=== PATIENT | male | born 1930 | race Caucasian/White ===

== ENCOUNTER 2017-03-17 15:44 | Inpatient (IN) | payer MEDICARE, BC ==
[2017-03-26] MEDS ORDERED: Ciprofloxacin 500 MG Tab PO PRN (12:07)
[2017-03-26] MEDS ORDERED: Ondansetron 4 MG/2 ML SDV IVPUSH PRN (12:07)
[2017-03-26] MEDS ORDERED: Diltiazem 100 MG in Sodium Chloride 0.9% 100 ML IV SCH (12:07)
[2017-03-26] MEDS ORDERED: Lactulose Soln 10 GM/15 ML 30 ML UD Cup PO PRN (12:07)
[2017-03-26] MEDS ORDERED: Nitroglycerin 0.4 MG Tab.SL SL PRN (12:07)
[2017-03-26] MEDS ORDERED: Sodium Chloride 0.9% 10 ML Syringe FLUSH PRN (12:07)
[2017-03-26] MEDS ORDERED: Acetaminophen 325 MG Tab PO PRN (12:07)
[2017-03-26] MEDS ORDERED: Polyethylene Glycol 3350 Powder 17 GM Packet PO PRN (12:07)
--- NOTE | 2017-03-26 12:21 | PCM.HP ---
H&P History of Present Illness - General Date of Service: 03/26/17 Admit Problem/Dx: Admission Diagnosis/Problem Admission Diagnosis/Problem Hip pain Source of Information: Patient History Limitations: Reports: No Limitations - History of Present Illness Initial Comments - Free Text/Narative: 86-year-old male with past medical history of hypertension, aortic stenosis, vasovagal syncope, recent left hip replacement coronary artery disease status post PCI on and March presented on 03/24/17 to the hospital from [facility] for swing bed for his left hip replacement and post coronary PCI recovery. Upon arrival to the hospital and while nurse taking his vitals patient felt central chest discomfort rated at 5/10 on pain scale associated with sweats and dizziness. He said it was hard for him to take a deep breath at that time. This lasted about 20 minutes and symptoms resolved spontaneously after sitting in chair. EKG was done and showed atrial fibrillation with heart rate of [address] changes. Troponin is 0.47. Patient denies headache, change in vision, fever, chills, cough, abdominal pain, diarrhea, lower extremities edema, unilateral weakness/numbness/tingling, bleeding, black stool, in stool, any other symptoms or concerns. On 03/07/2017 patient had syncopal episode and left hip fracture. At that time he went to [facility] in [place] and he was found to be anemic so blood transfusion and IV fluids were given and fracture was repaired by gamma nailing. During that hospitalization and was working with physical therapy patient developed atrial fibrillation was rapid ventricular response and had an episode of syncope. He was converted to normal sinus rhythm gradually at that time he was started on metoprolol and amiodarone. His troponin went up to 0.49 also it was reported that patient had 2 more episodes of syncope while working with physical therapy. His equal cardiogram showed ejection fraction of 65% and aortic stenosis with valve area of 1.86. Patient then was transferred to [place] for cardiac evaluation for possible valve replacement. Patient was found to have urinary tract infection with Staphylococcus epididymis and was started on doxycycline and later on ciprofloxacin patient was started on Midodrone for his syncope. Plavix and atorvastatin was started. Today patient feels better. He denies fever, chills chest discomfort, shortness breath, palpitation, dizziness, fainting, nausea, vomiting, abdominal pain, diarrhea, dysuria, blood in stool, black stool, blood in the urine, and any other symptoms or concerns. - Related Data Allergies/Adverse Reactions: Allergies Allergy/AdvReac Type Severity Reaction Status Date / Time No Known Allergies Allergy Verified 03/26/17 11:11 Home Medications: Home Meds Tamsulosin [Flomax] 0.4 mg PO DAILY 04/25/14 [History] Latanoprost [Xalatan 0.005% Ophth Soln] 1 drop EYEBOTH BEDTIME 04/26/14 [History ] Aspirin [Halfprin] 81 mg PO DAILY 03/24/17 [History] Ferrous Sulfate 325 mg PO DAILY 03/24/17 [History] LORazepam 0.5 mg PO Q8H PRN 03/24/17 [History] Lactulose 15 ml PO TID PRN 03/24/17 [History] Metoprolol Tartrate 12.5 mg PO BID 03/24/17 [History] Sennosides/Docusate Sodium [Sennosides-Docusate Sodium] 2 tab PO BID 03/24/17 [ History] Acetaminophen [Tylenol] 650 mg PO Q4H PRN tablet 03/26/17 [Rx] Ciprofloxacin [IJD: Ciprofloxacin HCl] 500 mg PO BID PRN tablet 03/26/17 [Rx] Past Medical History HEENT History: Reports: Cataract, Glaucoma, Hard of Hearing Cardiovascular History: Reports: Heart Murmur, Stents Genitourinary History: Reports: Prostate Disorder, Other (See Below) Other Genitourinary History: Pt had been doing self catheterization at home at HS and prn. Pt has hx of radiation pellets for prostate CA and has had difficulty voiding since then Musculoskeletal History: Reports: Fracture, Other (See Below) Other Musculoskeletal History: hip fracture repair 03-08-2017 Hematologic History: Reports: Blood Transfusion(s), Iron Deficiency, Other (See Below) Other Hematologic History: 2 blood transfusions after his recent surgery Oncologic (Cancer) History: Reports: Prostate - Infectious Disease History Infectious Disease History: Reports: Chicken Pox, Measles - Past Surgical History HEENT Surgical History: Reports: Cataract Surgery Cardiovascular Surgical History: Reports: Coronary Artery Stent GI Surgical History: Reports: Colonoscopy Male Surgical History: Reports: None Oncologic Surgical History: Reports: None Social & Family History - Family History Family Medical History: Noncontributory - Tobacco Use Smoking Status *Q: Former Smoker Years of Tobacco use: 15 Packs/Tins Daily: 2 Used Tobacco, but Quit: Yes Month Tobacco Last Used: July Second Hand Smoke Exposure: No - Caffeine Use Caffeine Use: Reports: Coffee - Recreational Drug Use Recreational Drug Use: No H&P Review of Systems - Review of Systems: Review Of Systems: ROS reveals no pertinent complaints other than HPI. Exam - Exam Exam: See Below - Exam General: Alert, Oriented, Cooperative. No: Mild Distress, Moderate Distress, Severe Distress, Sedated, Lethargic, Obtunded HEENT: Conjunctiva Clear, EACs Clear, EOMI, Hearing Intact, Mucosa Moist & [place] , Nares Patent, Normal Nasal Septum, Posterior Pharynx Clear, Pupils Equal, Pupils Reactive Neck: Supple, Trachea Midline, +2 Carotid Pulse wo Bruit Lungs: Clear to Auscultation, Normal Respiratory Effort. No: Crackles, Rales, Rhonchi, Rub, Stridor, Wheezing Cardiovascular: Regular Rate, Regular Rhythm, Normal S1, Normal S2 GI/Abdominal Exam: Normal Bowel Sounds, Soft, Non-Tender, No Organomegaly, No Distention, No Abnormal Bruit (Male) Exam: Deferred Rectal (Males) Exam: Deferred Back Exam: Normal Inspection, Full Range of Motion. No: CVA Tenderness (L), CVA Tenderness (R) Extremities: Normal Inspection, Normal Range of Motion, Non-Tender, No Pedal Edema, Normal Capillary Refill, Slow Capillary Refill Skin: Warm, Intact Neurological: Cranial Nerves Intact Neuro Extensive - Mental Status: Alert, Oriented x3, Normal Mood/Affect Psychiatric: Alert, Normal Affect, Normal Mood. No: Labile Mood, Anxious, Depressed, Agitated, Suicidal Ideation, Homicidal Ideation, Hallucinations, Withdrawal Symptoms *Q Meaningful Use (ADM) - VTE *Q VTE Criteria *Q: - Stroke *Q Stroke Criteria *Q: - AMI *Q AMI Criteria *Q: Problem List Initiated/Reviewed/Updated: Yes Orders Last 24hrs: Active Orders 24 hr Category Date Time Status Patient Status [ADT] Routine ADT 03/26/17 11:57 Active Antiembolic Devices [RC] PER UNIT ROUTINE Care 03/26/17 12:07 Inactive Antiembolic Devices [RC] PER UNIT ROUTINE Care 03/26/17 12:07 Ordered Bedrest Bathroom Privileges [RC] ASDIRECTED Care 03/26/17 12:07 Ordered Communication Order [RC] ROUTINE Care 03/26/17 12:07 Ordered Communication Order [RC] ROUTINE Care 03/26/17 12:07 Ordered Height and Weight [RC] WEEKLY Care 03/26/17 11:58 Active Intake and Output [RC] ASDIRECTED Care 03/26/17 11:56 Active Notify Provider Vital Signs [RC] ASDIRECTED Care 03/26/17 11:58 Active Oxygen Therapy [RC] PRN Care 03/26/17 11:57 Active Oxygen Therapy [RC] PRN Care 03/26/17 12:07 Inactive Peripheral IV Care [RC] . DIRECTED Care 03/26/17 12:07 Inactive Peripheral IV Care [RC] . DIRECTED Care 03/26/17 12:07 Ordered Ready for Discharge [RC] PER UNIT ROUTINE Care 03/26/17 12:07 Ordered Up ad Valerie [RC] ASDIRECTED Care 03/26/17 11:56 Active VTE/DVT Education [RC] PER UNIT ROUTINE Care 03/26/17 11:57 Active VTE/DVT Education [RC] PER UNIT ROUTINE Care 03/26/17 12:07 Inactive Vital Signs [RC] PER UNIT ROUTINE Care 03/26/17 11:57 Active OT Evaluation and Treatment [CONS] Routine Cons 03/26/17 12:07 Ordered PT Evaluation and Treatment [CONS] Routine Cons 03/26/17 12:07 Ordered Heart Healthy Diet [DIET] Diet 03/26/17 Lunch Ordered CULTURE URINE [RM] Routine Lab 03/26/17 12:07 Ordered Acetaminophen [Tylenol] Med 03/26/17 12:07 Ordered 650 mg PO Q4H PRN Amiodarone [Cordarone] Med 03/27/17 09:00 Ordered 200 mg PO DAILY Aspirin [Halfprin] Med 03/27/17 08:00 Ordered 81 mg PO DAILY@0800 Ciprofloxacin [Ciprofloxacin HCl] Med 03/26/17 12:07 Ordered 500 mg PO BID PRN Clopidogrel [Plavix] Med 03/27/17 09:00 Ordered 75 mg PO DAILY Diltiazem [Cardizem] 100 mg Med 03/26/17 12:07 Ordered Sodium Chloride 0.9% [Normal Saline] 100 ml IV TITRATE Docusate Sodium/Sennosides [Senna Plus] Med 03/26/17 21:00 Ordered 2 tab PO BID Ferrous Sulfate Med 03/27/17 09:00 Ordered 325 mg PO DAILY LORazepam [Ativan] Med 03/26/17 12:07 Ordered 0.5 mg PO Q8H PRN Lactulose [Cephulac] Med 03/26/17 12:07 Ordered 10 gm PO TID PRN Latanoprost [Xalatan 0.005% Ophth Soln] Med 03/26/17 21:00 Ordered 0 ml EYEBOTH BEDTIME Metoprolol Tartrate [Lopressor] Med 03/26/17 21:00 Ordered 12.5 mg PO BID Midodrine Med 03/26/17 18:00 Ordered 2.5 mg PO BIDMEALS Nitroglycerin [Nitrostat] Med 03/26/17 12:07 Ordered 0.4 mg SL Q5M PRN Ondansetron [Zofran] Med 03/26/17 12:07 Ordered 4 mg IVPUSH Q6H PRN Polyethylene Glycol 3350 [MiraLAX] Med 03/26/17 12:07 Ordered 17 gm PO DAILY PRN Sodium Chloride 0.9% [Saline Flush] Med 03/26/17 12:07 Ordered 10 ml FLUSH ASDIRECTED PRN Sodium Chloride 0.9% [Saline Flush] Med 03/26/17 12:07 Ordered 10 ml FLUSH ASDIRECTED PRN Tamsulosin [Flomax] Med 03/27/17 09:00 Ordered 0.4 mg PO DAILY atorvaSTATin [Lipitor] Med 03/26/17 21:00 Ordered 40 mg PO BEDTIME Peripheral IV Insertion Adult [OM.PC] Routine Oth 03/26/17 12:07 Ordered LIMA Hose [Antiembolic Hose] [OM.PC] Routine Oth 03/26/17 12:07 Ordered Resuscitation Status Routine Resus Stat 03/26/17 11:56 Ordered Medication Orders Acetaminophen (Tylenol) 650 mg PO Q4H PRN PRN Reason: Pain (Mild 1-3)/fever Amiodarone HCl (Cordarone) 200 mg PO DAILY BEAN Aspirin (Halfprin) 81 mg PO DAILY@0800 [facility] Atorvastatin Calcium (Lipitor) 40 mg PO BEDTIME BEAN Ciprofloxacin (Ciprofloxacin Hcl) 500 mg PO BID PRN PRN Reason: HOME ROUTINE Stop: 04/03/17 21:01 Clopidogrel Bisulfate (Plavix) 75 mg PO DAILY BEAN Ferrous Sulfate (Ferrous Sulfate) 325 mg PO DAILY BEAN Diltiazem HCl 100 mg/ Sodium (Chloride) 100 mls @ 5 mls/hr IV TITRATE BEAN; 5 MG /HR PRN Reason: Protocol Lactulose (Cephulac) 10 gm PO TID PRN PRN Reason: CONSTIPATION Latanoprost (Xalatan 0.005% Ophth Soln) 0 ml EYEBOTH BEDTIME BEAN Lorazepam (Ativan) 0.5 mg PO Q8H PRN PRN Reason: Anxiety Metoprolol Tartrate (Lopressor) 12.5 mg PO BID BEAN Midodrine (Midodrine) 2.5 mg PO BIDMEALS BEAN Nitroglycerin (Nitrostat) 0.4 mg SL Q5M PRN PRN Reason: Chest Pain Ondansetron HCl (Zofran) 4 mg IVPUSH Q6H PRN PRN Reason: Nausea/Vomiting Polyethylene Glycol (Miralax) 17 gm PO DAILY PRN PRN Reason: Constipation Senna/Docusate Sodium (Senna Plus) 2 tab PO BID BEAN Sodium Chloride (Saline Flush) 10 ml FLUSH ASDIRECTED PRN PRN Reason: Keep Vein Open Sodium Chloride (Saline Flush) 10 ml FLUSH ASDIRECTED PRN PRN Reason: Keep Vein Open Tamsulosin HCl (Flomax) 0.4 mg PO DAILY [facility] Assessment/Plan Comment:: 86-year-old male with past medical history of essential hypertension, aortic stenosis, syncope who sustained left ear fracture on 03/07/2017 after syncopal episode and underwent gamma nailing procedure. While doing postsurgical physical therapy patient developed atrial fibrillation that was resolved spontaneously. Patient underwent coronary angiogram with PCI last week. Patient was coming to our hospital to do postsurgical physical therapy and occupational therapy after his surgery and upon arrival he developed atrial fibrillation with RVR. Troponin is 0.47. Patient received Cardizem 10 mg IV once attention to his oral metoprolol and spontaneously converted to sinus rhythm after few hours. For the last 2 days patient has been free of symptoms and he is being admitted to swing bed for further physical and the patient's therapy for his left hip surgery recovered. #Status post left hip replacement PT and OT consults Pain is fairly controlled #Paroxysmal atrial fibrillation -EKG on 03/25/17 showed sinus rhythm today Converted to sinus rhythm after few hours after receiving 1 L of normal saline as a bolus, Cardizem 10 mg IV push, metoprolol tartrate 12.5 mg by mouth. -Continue Plavix and aspirin -Troponin is stable -Continue amiodarone and metoprolol #Anemia, chronic He denies blood in the stool or black stool -Hemoglobin dropped to 7.4. Possibly from dilution. Today went up to 8.0. -Continue ferrous sulfate #Coronary artery disease with recent PCI Continue Placontinue aspirin and Plavix #Possible UTI Ciprofloxacin 500 for 10 days Awaiting urine culture #Essential hypertension Metoprolol #Chronic kidney disease Avoid nephrotoxic medications heart healthy diet DVT prophylaxis: Pharmaceutical DVT prophylaxis is contraindicated since he is on Lovenox CODE STATUS: Full
[2017-03-26] MEDS: Midodrine 2.5 MG Tab PO SCH (17:13)
[2017-03-26] MEDS: Ciprofloxacin 500 MG Tab PO SCH (20:55)
[2017-03-26] MEDS: Metoprolol Tartrate 25 MG Tab PO SCH (20:56)
[2017-03-26] MEDS: atorvaSTATin 20 MG Tab PO SCH (20:56)
[2017-03-26] MEDS: Latanoprost 0.005% Ophth Soln 2.5 ML Bottle EYEBOTH SCH (21:00)
[2017-03-26] MEDS: Sodium Chloride 0.9% 10 ML Syringe FLUSH PRN ×2 (21:02→21:03)
[2017-03-26] MEDS: LORazepam 0.5 MG Tab PO PRN (22:13)
[2017-03-27] MEDS: Aspirin 81 MG Tab.EC PO SCH (08:04)
[2017-03-27] MEDS: Ferrous Sulfate 325 MG Tab PO SCH (08:04)
[2017-03-27] MEDS: Amiodarone 200 MG Tab PO SCH (08:04)
[2017-03-27] MEDS: Clopidogrel 75 MG Tab PO SCH (08:04)
[2017-03-27] MEDS: Ciprofloxacin 500 MG Tab PO SCH ×2 (08:04→20:42)
[2017-03-27] MEDS: Midodrine 2.5 MG Tab PO SCH ×2 (08:04→17:05)
[2017-03-27] MEDS: Tamsulosin 0.4 MG Cap.ER PO SCH (08:05)
[2017-03-27] MEDS: Metoprolol Tartrate 25 MG Tab PO SCH ×2 (08:05→20:43)
[2017-03-27] MEDS: atorvaSTATin 20 MG Tab PO SCH (20:42)
[2017-03-27] MEDS ORDERED: Ondansetron 4 MG Tab.DIS PO PRN ×2 (20:46→21:01)
[2017-03-27] MEDS: Latanoprost 0.005% Ophth Soln 2.5 ML Bottle EYEBOTH SCH (21:05)
[2017-03-27] MEDS: LORazepam 0.5 MG Tab PO PRN (21:15)
[2017-03-28] MEDS: Aspirin 81 MG Tab.EC PO SCH (07:41)
[2017-03-28] MEDS: Midodrine 2.5 MG Tab PO SCH ×2 (07:41→17:00)
[2017-03-28] MEDS: Clopidogrel 75 MG Tab PO SCH ×2 (07:41→08:37)
[2017-03-28] MEDS: Tamsulosin 0.4 MG Cap.ER PO SCH ×2 (07:42→08:37)
[2017-03-28] MEDS: Ciprofloxacin 500 MG Tab PO SCH (07:42)
[2017-03-28] MEDS: Ferrous Sulfate 325 MG Tab PO SCH (07:42)
[2017-03-28] MEDS: Metoprolol Tartrate 25 MG Tab PO SCH ×3 (07:50→21:36)
[2017-03-28] MEDS: Amiodarone 200 MG Tab PO SCH ×2 (07:50→08:37)
--- NOTE | 2017-03-28 08:23 | PCM.SN ---
- Free Text/Narrative Note: urine cx grew klebsiella Pneumoniae, resistant to cipro but sensitive to levaquin. will change cipro to levaquin
[2017-03-28] MEDS ORDERED: Levofloxacin 500 MG Tab PO SCH (10:00)
--- NOTE | 2017-03-28 13:55 | CR ---
Clinical history: 86-year-old male status post orthopedic gamma nailing surgery proximal left hip fra cture (few weeks ago) Interpretation: Intramedullary celio extends length of left femur and bridges/transfixes the intertroch anteric fracture with near anatomic apposition and alignment (anchored with nail in the femoral neck and head). No periosteal new bone or healing callus appreciated this time. No other long bone fracture or dislocation left hip or knee joint.
[2017-03-28] MEDS: atorvaSTATin 20 MG Tab PO SCH (21:36)
[2017-03-28] MEDS: LORazepam 0.5 MG Tab PO PRN (21:41)
[2017-03-28] MEDS: Latanoprost 0.005% Ophth Soln 2.5 ML Bottle EYEBOTH SCH (21:46)
[2017-03-29] MEDS: Levofloxacin 250 MG Tab PO SCH (08:01)
[2017-03-29] MEDS: Aspirin 81 MG Tab.EC PO SCH (08:01)
[2017-03-29] MEDS: Metoprolol Tartrate 25 MG Tab PO SCH ×2 (08:01→21:35)
[2017-03-29] MEDS: Amiodarone 200 MG Tab PO SCH (08:01)
[2017-03-29] MEDS: Clopidogrel 75 MG Tab PO SCH (08:01)
[2017-03-29] MEDS: Midodrine 2.5 MG Tab PO SCH ×2 (08:01→16:59)
[2017-03-29] MEDS: Ferrous Sulfate 325 MG Tab PO SCH (08:01)
[2017-03-29] MEDS: Tamsulosin 0.4 MG Cap.ER PO SCH (08:01)
[2017-03-29] MEDS: Latanoprost 0.005% Ophth Soln 2.5 ML Bottle EYEBOTH SCH (20:49)
[2017-03-29] MEDS: atorvaSTATin 20 MG Tab PO SCH (20:50)
[2017-03-29] MEDS: LORazepam 0.5 MG Tab PO PRN (20:58)
[2017-03-30] MEDS: Ferrous Sulfate 325 MG Tab PO SCH (07:58)
[2017-03-30] MEDS: Midodrine 2.5 MG Tab PO SCH ×2 (07:58→16:59)
[2017-03-30] MEDS: Aspirin 81 MG Tab.EC PO SCH (07:58)
[2017-03-30] MEDS: Amiodarone 200 MG Tab PO SCH (07:59)
[2017-03-30] MEDS: Tamsulosin 0.4 MG Cap.ER PO SCH (07:59)
[2017-03-30] MEDS: Clopidogrel 75 MG Tab PO SCH (07:59)
[2017-03-30] MEDS: Metoprolol Tartrate 25 MG Tab PO SCH ×2 (07:59→20:51)
[2017-03-30] MEDS: Levofloxacin 250 MG Tab PO SCH (07:59)
[2017-03-30] MEDS: atorvaSTATin 20 MG Tab PO SCH (20:51)
[2017-03-30] MEDS: Latanoprost 0.005% Ophth Soln 2.5 ML Bottle EYEBOTH SCH (20:55)
[2017-03-30] MEDS: LORazepam 0.5 MG Tab PO PRN (21:34)
[2017-03-31] MEDS: Aspirin 81 MG Tab.EC PO SCH (07:58)
[2017-03-31] MEDS: Midodrine 2.5 MG Tab PO SCH ×3 (07:58→17:46)
[2017-03-31] MEDS: Ferrous Sulfate 325 MG Tab PO SCH (07:58)
[2017-03-31] MEDS: Levofloxacin 250 MG Tab PO SCH (08:35)
[2017-03-31] MEDS: Clopidogrel 75 MG Tab PO SCH (08:35)
[2017-03-31] MEDS: Metoprolol Tartrate 25 MG Tab PO SCH ×2 (08:35→21:12)
[2017-03-31] MEDS: Tamsulosin 0.4 MG Cap.ER PO SCH (08:35)
[2017-03-31] MEDS: Amiodarone 200 MG Tab PO SCH (08:36)
[2017-03-31] MEDS: atorvaSTATin 20 MG Tab PO SCH (21:11)
[2017-03-31] MEDS: Latanoprost 0.005% Ophth Soln 2.5 ML Bottle EYEBOTH SCH (21:15)
[2017-03-31] MEDS: LORazepam 0.5 MG Tab PO PRN (22:04)
[2017-04-01] MEDS: Midodrine 2.5 MG Tab PO SCH ×2 (08:35→17:13)
[2017-04-01] MEDS: Aspirin 81 MG Tab.EC PO SCH (08:35)
[2017-04-01] MEDS: Ferrous Sulfate 325 MG Tab PO SCH (08:35)
[2017-04-01] MEDS: Metoprolol Tartrate 25 MG Tab PO SCH ×2 (08:36→20:50)
[2017-04-01] MEDS: Levofloxacin 250 MG Tab PO SCH (08:37)
[2017-04-01] MEDS: Tamsulosin 0.4 MG Cap.ER PO SCH (08:37)
[2017-04-01] MEDS: Clopidogrel 75 MG Tab PO SCH (08:38)
[2017-04-01] MEDS: Amiodarone 200 MG Tab PO SCH (11:53)
[2017-04-01] MEDS: atorvaSTATin 20 MG Tab PO SCH (20:50)
[2017-04-01] MEDS: Latanoprost 0.005% Ophth Soln 2.5 ML Bottle EYEBOTH SCH (20:55)
[2017-04-01] MEDS: LORazepam 0.5 MG Tab PO PRN (21:48)
[2017-04-02] MEDS: Midodrine 2.5 MG Tab PO SCH ×2 (07:59→17:02)
[2017-04-02] MEDS: Amiodarone 200 MG Tab PO SCH (08:31)
[2017-04-02] MEDS: Tamsulosin 0.4 MG Cap.ER PO SCH (08:31)
[2017-04-02] MEDS: Aspirin 81 MG Tab.EC PO SCH (08:31)
[2017-04-02] MEDS: Metoprolol Tartrate 25 MG Tab PO SCH ×2 (08:31→21:45)
[2017-04-02] MEDS: Ferrous Sulfate 325 MG Tab PO SCH (08:31)
[2017-04-02] MEDS: Clopidogrel 75 MG Tab PO SCH (08:31)
[2017-04-02] MEDS: Levofloxacin 250 MG Tab PO SCH (08:31)
[2017-04-02] MEDS: Latanoprost 0.005% Ophth Soln 2.5 ML Bottle EYEBOTH SCH (20:34)
[2017-04-02] MEDS: atorvaSTATin 20 MG Tab PO SCH (20:34)
[2017-04-02] MEDS: LORazepam 0.5 MG Tab PO PRN (21:47)
[2017-04-03] MEDS: Midodrine 2.5 MG Tab PO SCH (08:14)
[2017-04-03] MEDS: Amiodarone 200 MG Tab PO SCH (08:15)
[2017-04-03] MEDS: Aspirin 81 MG Tab.EC PO SCH (08:15)
[2017-04-03] MEDS: Levofloxacin 250 MG Tab PO SCH (08:15)
[2017-04-03] MEDS: Clopidogrel 75 MG Tab PO SCH (08:15)
[2017-04-03] MEDS: Ferrous Sulfate 325 MG Tab PO SCH (08:15)
[2017-04-03] MEDS: Metoprolol Tartrate 25 MG Tab PO SCH (08:16)
[2017-04-03] MEDS: Tamsulosin 0.4 MG Cap.ER PO SCH (08:16)
--- NOTE | 2017-04-03 09:40 | PCM.DCSUM1 ---
Discharge Summary - Hospital Course Free Text/Narrative:: Assessment/Plan Comment:: 86-year-old male with past medical history of essential hypertension, aortic stenosis, syncope who sustained left hip fracture on 03/07/2017 after syncopal episode and underwent gamma nailing procedure. While doing postsurgical physical therapy patient developed atrial fibrillation that was resolved spontaneously. Patient underwent coronary angiogram with PCI last week. Patient was coming to our hospital to do physical therapy and occupational therapy. #Status post left hip replacement worked well with PT and OT consults will benefit from using a walkerat home #Paroxysmal atrial fibrillation Converted to sinus rhythm -Continue Plavix and aspirin -Continue amiodarone and metoprolol #Anemia, chronic -Continue ferrous sulfate #Coronary artery disease with recent PCI continue aspirin and Plavix #UTI treated with Ciprofloxacin and lwvofloxacin #Essential hypertension Metoprolol - Discharge Data Discharge Date: 04/03/17 Discharge Disposition: Home, Self-Care 01 Condition: Good - Patient Summary/Data Consults: Consultations 03/26/17 12:07 OT Evaluation and Treatment [CONS] Routine PT Evaluation and Treatment [CONS] Routine - Discharge Plan Home Medications: Home Meds Tamsulosin [Flomax] 0.4 mg PO DAILY 04/25/14 [History] Latanoprost [Xalatan 0.005% Ophth Soln] 1 drop EYEBOTH BEDTIME 04/26/14 [History ] Aspirin [Halfprin] 81 mg PO DAILY 03/24/17 [History] Ferrous Sulfate 325 mg PO DAILY 03/24/17 [History] LORazepam 0.5 mg PO Q8H PRN 03/24/17 [History] Lactulose 15 ml PO TID PRN 03/24/17 [History] Metoprolol Tartrate 12.5 mg PO BID 03/24/17 [History] Sennosides/Docusate Sodium [Sennosides-Docusate Sodium] 2 tab PO BID 03/24/17 [ History] Acetaminophen [Tylenol] 650 mg PO Q4H PRN tablet 03/26/17 [Rx] Amiodarone [Cordarone] 200 mg PO DAILY tablet 04/03/17 [Rx] Clopidogrel [Plavix] 75 mg PO DAILY tablet 04/03/17 [Rx] Midodrine 2.5 mg PO BIDMEALS tablet 04/03/17 [Rx] Nitroglycerin [IJP: Nitroglycerin] 0.4 mg SL Q5M PRN tablet, sublingual [Rx] atorvaSTATin [Lipitor] 40 mg PO BEDTIME tablet 04/03/17 [Rx] Referrals: Luigi Jonas MD [Physician] - (in 2-3 days) - General Info Date of Service: 04/03/17 - Review of Systems General: Denies: Fever Pulmonary: Denies: Shortness of Breath Cardiovascular: Denies: Chest Pain Gastrointestinal: Denies: Abdominal Pain - Patient Data Vitals - Most Recent: Last Vital Signs Temp 36.7 C 04/03/17 07:18 Pulse 65 04/03/17 08:16 Resp 18 04/03/17 07:18 BP 127/57 L 04/03/17 08:16 Pulse Ox 94 L 04/03/17 07:18 Weight - Most Recent: 68.039 kg I&O - Last 24 hours: Intake & Output 04/02/17 04/03/17 04/03/17 22:59 06:59 14:59 Intake Total 320 250 360 Output Total 550 1250 Balance -230 -1000 360 Med Orders - Current: Current Medications Acetaminophen (Tylenol) 650 mg PO Q4H PRN PRN Reason: Pain (Mild 1-3)/fever Amiodarone HCl (Cordarone) 200 mg PO DAILY [facility] Last Admin: 04/03/17 08:15 Dose: 200 mg Aspirin (Halfprin) 81 mg PO DAILY@0800 [facility] Last Admin: 04/03/17 08:15 Dose: 81 mg Atorvastatin Calcium (Lipitor) 40 mg PO BEDTIME [facility] Last Admin: 04/02/17 20:34 Dose: 40 mg Clopidogrel Bisulfate (Plavix) 75 mg PO DAILY [facility] Last Admin: 04/03/17 08:15 Dose: 75 mg Ferrous Sulfate (Ferrous Sulfate) 325 mg PO DAILY@0800 [facility] Last Admin: 04/03/17 08:15 Dose: 325 mg Lactulose (Cephulac) 10 gm PO TID PRN PRN Reason: CONSTIPATION Latanoprost (Xalatan 0.005% Ophth Soln) 0 ml EYEBOTH BEDTIME [facility] Last Admin: 04/02/17 20:34 Dose: 1 drop Levofloxacin (Levaquin) 250 mg PO DAILY [facility] Stop: 04/06/17 09:01 Last Admin: 04/03/17 08:15 Dose: 250 mg Lorazepam (Ativan) 0.5 mg PO Q8H PRN PRN Reason: Anxiety Last Admin: 04/02/17 21:47 Dose: 0.5 mg Metoprolol Tartrate (Lopressor) 12.5 mg PO BID [facility] Last Admin: 04/03/17 08:16 Dose: 12.5 mg Midodrine (Midodrine) 2.5 mg PO BIDMEALS [facility] Last Admin: 04/03/17 08:14 Dose: 2.5 mg Nitroglycerin (Nitrostat) 0.4 mg SL Q5M PRN PRN Reason: Chest Pain Ondansetron HCl (Zofran Odt) 4 mg PO Q6H PRN PRN Reason: nausea, vomiting Polyethylene Glycol (Miralax) 17 gm PO DAILY PRN PRN Reason: Constipation Senna/Docusate Sodium (Senna Plus) 2 tab PO DAILY PRN PRN Reason: Constipation Last Admin: 04/03/17 08:22 Dose: 2 tab Tamsulosin HCl (Flomax) 0.4 mg PO DAILY [facility] Last Admin: 04/03/17 08:16 Dose: 0.4 mg Discontinued Medications Ciprofloxacin (Ciprofloxacin Hcl) 500 mg PO BID PRN PRN Reason: HOME ROUTINE Stop: 04/03/17 21:01 Ciprofloxacin (Ciprofloxacin Hcl) 500 mg PO BID [facility] Stop: 04/03/17 21:01 Last Admin: 03/28/17 07:42 Dose: 500 mg Levofloxacin (Levaquin) 500 mg PO Q24H [facility] Stop: 04/06/17 10:01 Last Admin: 03/28/17 09:57 Dose: 500 mg Ondansetron HCl (Zofran) 4 mg IVPUSH Q6H PRN PRN Reason: Nausea/Vomiting Ondansetron HCl (Zofran Odt) 4 mg PO Q6H PRN PRN Reason: Nausea Senna/Docusate Sodium (Senna Plus) 2 tab PO BID [facility] Last Admin: 03/29/17 08:04 Dose: Not Given Sodium Chloride (Saline Flush) 10 ml FLUSH ASDIRECTED PRN PRN Reason: Keep Vein Open Last Admin: 03/26/17 21:03 Dose: 10 ml Sodium Chloride (Saline Flush) 10 ml FLUSH ASDIRECTED PRN PRN Reason: Keep Vein Open - Exam General: Reports: Alert, Oriented Neck: Reports: Supple Lungs: Reports: Clear to Auscultation, Normal Respiratory Effort Cardiovascular: Reports: Regular Rate, Regular Rhythm Extremities: No Pedal Edema *Q Meaningful Use (DIS) - VTE *Q VTE Criteria *Q: - Stroke *Q Stroke Criteria *Q: - AMI *Q AMI Criteria *Q:
== END 2017-04-03 13:30 | disposition home or self-care (01) | DRG 951 ==
LOC: DL.MS 03-26 11:57
PROVIDERS: ADMIT Family Medicine; ATTEND Family Medicine
DX: Z74.1 Need for assistance with personal care (principal); N39.0 Urinary tract infection, site not specified; Z96.642 Presence of left artificial hip joint; I48.0 Paroxysmal atrial fibrillation; I25.10 Atherosclerotic heart disease of native coronary artery without angina pectoris; Z95.5 Presence of coronary angioplasty implant and graft; D64.9 Anemia, unspecified; I12.9 Hypertensive chronic kidney disease with stage 1 through stage 4 chronic kidney disease, or unspecified chronic kidney disease; N18.9 Chronic kidney disease, unspecified; Z85.46 Personal history of malignant neoplasm of prostate; H40.9 Unspecified glaucoma; H91.90 Unspecified hearing loss, unspecified ear; Z87.891 Personal history of nicotine dependence; Z79.82 Long term (current) use of aspirin; Z79.899 Other long term (current) drug therapy; B96.1 Klebsiella pneumoniae [K. pneumoniae] as the cause of diseases classified elsewhere; Z16.29 Resistance to other single specified antibiotic
CPT/HCPCS: 97110-GO; 97110-GP; 97116-GP; 97161-GP; 97165-GO; 97530-GO; 97535-GO; A9270-GY; J7050

== ENCOUNTER 2017-03-24 10:54 | Inpatient (IN) | payer MEDICARE, BC ==
[2017-03-24 18:03] LABS: CHLORIDE,CL 103 mmol/L (101-111); SODIUM,NA 135 mmol/L (135-145)
[2017-03-24] MEDS ORDERED: Diltiazem 25 MG/5 ML SDV IVPUSH STA (18:32)
[2017-03-24] MEDS ORDERED: Sodium Chloride 0.9% 1,000 ML IV SCH ×2 (18:45→20:00)
[2017-03-24] MEDS ORDERED: Acetaminophen 325 MG Tab PO PRN (19:06)
[2017-03-24] MEDS ORDERED: Sodium Chloride 0.9% 10 ML Syringe FLUSH PRN (19:06)
[2017-03-24] MEDS ORDERED: Ondansetron 4 MG/2 ML SDV IVPUSH PRN (19:06)
[2017-03-24] MEDS ORDERED: Polyethylene Glycol 3350 Powder 17 GM Packet PO PRN (19:06)
[2017-03-24] MEDS ORDERED: Magnesium Sulfate/Water 4 GM in Premix Bag 1 BAG IV ONE (19:09)
[2017-03-24] MEDS ORDERED: Potassium Chloride 10 MEQ Tab.ER PO ONE (19:10)
[2017-03-24] MEDS ORDERED: Diltiazem 100 MG in Sodium Chloride 0.9% 100 ML IV SCH (19:15)
[2017-03-24] MEDS ORDERED: Enoxaparin 80 MG/0.8 ML Syringe SUBCUT ONE (19:16)
[2017-03-24] MEDS ORDERED: Nitroglycerin 0.4 MG Tab.SL SL PRN (19:27)
[2017-03-24] MEDS ORDERED: Lactulose Soln 10 GM/15 ML 30 ML UD Cup PO PRN (19:45)
--- NOTE | 2017-03-24 19:46 | PCM.HP ---
H&P History of Present Illness - General Date of Service: 03/24/17 Admit Problem/Dx: Admission Diagnosis/Problem Admission Diagnosis/Problem Atrial fibrillation with rapid ventricular response Source of Information: Patient, Family ( and daughter) History Limitations: Reports: No Limitations - History of Present Illness Initial Comments - Free Text/Narative: 86-year-old male with past medical history of hypertension, aortic stenosis, vasovagal syncope, recent left hip replacement coronary artery disease status post PCI on and March presented to the hospital from [facility] for swing bed for his left hip replacement and post coronary PCI recovery. Upper arrival to the hospital and while nurse taking his vitals patient felt central chest discomfort rated at 5/10 on pain scale associated with sweats and dizziness. He said it was hard for him to take a deep breath at that time. This lasted about 20 minutes and symptoms resolved spontaneously after sitting in chair. EKG was done and showed atrial fibrillation with heart rate of [address] changes. Troponin is 0.47. Patient denies headache, change in vision, fever, chills, cough, abdominal pain, diarrhea, lower extremities edema, unilateral weakness/numbness/tingling, bleeding, black stool, in stool, any other symptoms or concerns. On 03/07/2017 patient had syncopal episode and left hip fracture. At that time he went to [facility] in [place] and he was found to be anemic so blood transfusion and IV fluids were given and fracture was repaired by gamma nailing. During that hospitalization and was working with physical therapy patient developed atrial fibrillation was rapid ventricular response and had an episode of syncope. He was converted to normal sinus rhythm gradually at that time he was started on metoprolol and amiodarone. His troponin went up to 0.49 also it was reported that patient had 2 more episodes of syncope while working with physical therapy. His equal cardiogram showed ejection fraction of 65% and aortic stenosis with valve area of 0.86. Patient then was transferred to [place] for cardiac evaluation for possible valve replacement. Patient was found to have urinary tract infection with Staphylococcus epididymis and was started on doxycycline and later on ciprofloxacin patient was started on Midodrone for his syncope. Plavix and atorvastatin was started. - Related Data Allergies/Adverse Reactions: Allergies Allergy/AdvReac Type Severity Reaction Status Date / Time No Known Allergies Allergy Verified 03/24/17 16:43 Home Medications: Home Meds Tamsulosin [Flomax] 0.4 mg PO DAILY 04/25/14 [History] Latanoprost [Xalatan 0.005% Ophth Soln] 1 drop EYEBOTH BEDTIME 04/26/14 [History ] Acetaminophen 650 mg PO Q6H PRN 03/24/17 [History] Aspirin [Halfprin] 81 mg PO DAILY 03/24/17 [History] Ciprofloxacin HCl [Cipro] 250 mg PO BID PRN 03/24/17 [History] Ferrous Sulfate 325 mg PO DAILY 03/24/17 [History] LORazepam [LORazepam] 0.5 mg PO Q8H PRN 03/24/17 [History] Lactulose 15 ml PO TID PRN 03/24/17 [History] Metoprolol Tartrate [Metoprolol Tartrate] 12.5 mg PO BID 03/24/17 [History] Sennosides/Docusate Sodium [Sennosides-Docusate Sodium] 2 tab PO BID 03/24/17 [ History] Past Medical History HEENT History: Reports: Cataract, Glaucoma, Hard of Hearing Cardiovascular History: Reports: Heart Murmur, Stents Genitourinary History: Reports: Prostate Disorder, Other (See Below) Other Genitourinary History: Pt had been doing self catheterization at home at HS and prn. Pt has hx of radiation pellets for prostate CA and has had difficulty voiding since then Musculoskeletal History: Reports: Fracture, Other (See Below) Other Musculoskeletal History: hip fracture repair 03-08-2017 Hematologic History: Reports: Blood Transfusion(s), Iron Deficiency, Other (See Below) Other Hematologic History: 2 blood transfusions after his recent surgery Oncologic (Cancer) History: Reports: Prostate - Infectious Disease History Infectious Disease History: Reports: Chicken Pox, Measles - Past Surgical History HEENT Surgical History: Reports: Cataract Surgery Cardiovascular Surgical History: Reports: Coronary Artery Stent GI Surgical History: Reports: Colonoscopy Male Surgical History: Reports: None Oncologic Surgical History: Reports: None Social & Family History - Family History Family Medical History: Noncontributory - Tobacco Use Smoking Status *Q: Former Smoker Years of Tobacco use: 15 Packs/Tins Daily: 2 Used Tobacco, but Quit: Yes Month Tobacco Last Used: July Second Hand Smoke Exposure: No - Caffeine Use Caffeine Use: Reports: Coffee - Recreational Drug Use Recreational Drug Use: No H&P Review of Systems - Review of Systems: Review Of Systems: ROS reveals no pertinent complaints other than HPI. Exam - Exam Exam: See Below - Vital Signs Vital Signs: Last Vital Signs Temp 37.1 C 03/24/17 16:29 Pulse 83 03/24/17 16:29 Resp 20 03/24/17 16:29 BP 134/61 03/24/17 16:29 Pulse Ox 97 03/24/17 16:29 Orthostatic Blood Pressure [ 100/48 Standing] Orthostatic Blood Pressure [ 136/72 Sitting] Orthostatic Blood Pressure [ 134/61 Supine] Weight: 74.298 kg - Exam General: Alert, Oriented, Cooperative, Mild Distress (Due to having chest discomfort however this was subsidized spontaneously and patient was not in distress.). No: Moderate Distress, Severe Distress, Sedated, Lethargic, Obtunded HEENT: Conjunctiva Clear, EACs Clear, EOMI, Hearing Intact, Mucosa Moist & [place] , Nares Patent, Normal Nasal Septum, Posterior Pharynx Clear, Pupils Equal, Pupils Reactive Neck: Supple, Trachea Midline Lungs: Clear to Auscultation, Normal Respiratory Effort. No: Decreased Breath Sounds, Crackles, Rales, Rhonchi, Rub, Stridor, Wheezing Cardiovascular: Normal S1, Normal S2, Irregular Rhythm, Tachycardia. No: Bradycardia, Rubs GI/Abdominal Exam: Normal Bowel Sounds, Soft, Non-Tender, No Organomegaly, No Distention, No Abnormal Bruit, No Mass (Male) Exam: Deferred Rectal (Males) Exam: Deferred Back Exam: Normal Inspection, Full Range of Motion. No: CVA Tenderness (L), CVA Tenderness (R) Extremities: Normal Range of Motion, Non-Tender, No Pedal Edema, Normal Capillary Refill, Other (Left hip appropriate postsurgical swelling. No sings of hematoma). No: Pedal Edema Skin: Warm, Dry, Intact Neurological: Cranial Nerves Intact Neuro Extensive - Mental Status: Alert, Oriented x3, Normal Mood/Affect, Normal Cognition Neuro Extensive - Motor, Sensory, Reflexes: CN II-XII Intact Psychiatric: Alert, Normal Affect, Normal Mood. No: Anxious, Depressed, Agitated, Suicidal Ideation, Homicidal Ideation, Hallucinations - Patient Data Lab Results Last 24 hrs: Laboratory Results - last 24 hr 02/01/2703/24/17 03/24/17 Range/Units 17:35 17:35 17:35 WBC 8.4 (5.0-10.0) 10^3/uL RBC 3.13 L (4.6-6.2) 10^6/uL Hgb 9.4 L (14.0-18.0) g/dL Hct 28.4 L (40.0-54.0) % MCV 90.7 (80-100) fL MCH 30.0 (27.0-34.0) pg MCHC 33.1 (33.0-35.0) g/dL Plt Count 142 L (150-450) 10^3/uL Neut % (Auto) 76.0 H (42.2-75.2) % Lymph % (Auto) 12.2 L (20.5-50.1) % [place] % (Auto) 8.7 H (2-8) % Eos % (Auto) 2.3 (1.0-3.0) % Baso % (Auto) 0.8 (0.0-1.0) % Sodium 135 (135-145) mmol/L Potassium 3.5 L (3.6-5.0) mmol/L Chloride 103 (101-111) mmol/L Carbon Dioxide 23.0 (21.0-31.0) mmol/L Anion Gap 12.5 BUN 28 H (7-18) mg/dL Creatinine 1.1 (0.6-1.3) mg/dL Est Cr Clr Drug Dosing 48.78 mL/min Estimated GFR (MDRD) > 60 Glucose 105 (74-105) mg/dL Calcium 9.0 (8.4-10.2) mg/dl Magnesium 1.7 L (1.8-2.5) mg/dL Troponin I 0.47 H* (0.00-0.02) ng/ml TSH, Ultra Sensitive (0.45-5.33) uIu/mL 03/24/17 Range/Units 17:35 WBC (5.0-10.0) 10^3/uL RBC (4.6-6.2) 10^6/uL Hgb (14.0-18.0) g/dL Hct (40.0-54.0) % MCV (80-100) fL MCH (27.0-34.0) pg MCHC (33.0-35.0) g/dL Plt Count (150-450) 10^3/uL Neut % (Auto) (42.2-75.2) % Lymph % (Auto) (20.5-50.1) % [place] % (Auto) (2-8) % Eos % (Auto) (1.0-3.0) % Baso % (Auto) (0.0-1.0) % Sodium (135-145) mmol/L Potassium (3.6-5.0) mmol/L Chloride (101-111) mmol/L Carbon Dioxide (21.0-31.0) mmol/L Anion Gap BUN (7-18) mg/dL Creatinine (0.6-1.3) mg/dL Est Cr Clr Drug Dosing mL/min Estimated GFR (MDRD) Glucose (74-105) mg/dL Calcium (8.4-10.2) mg/dl Magnesium (1.8-2.5) mg/dL Troponin I (0.00-0.02) ng/ml TSH, Ultra Sensitive 1.20 (0.45-5.33) uIu/mL Result Diagrams: 03/24/17 17:35 03/24/17 17:35 *Q Meaningful Use (ADM) - VTE *Q VTE Criteria *Q: - Stroke *Q Stroke Criteria *Q: - AMI *Q AMI Criteria *Q: - Problem List (1) Atrial fibrillation with RVR SNOMED Code(s): 592548643077473 ICD Code: I48.91 - UNSPECIFIED ATRIAL FIBRILLATION Status: Acute Priority : High Current Visit: Yes (2) History of left hip replacement SNOMED Code(s): 645649746 ICD Code: Z96.642 - PRESENCE OF LEFT ARTIFICIAL HIP JOINT Status: Acute Current Visit: Yes (3) Syncope SNOMED Code(s): 620927853 ICD Code: R55 - SYNCOPE AND COLLAPSE Status: Chronic Current Visit: Yes (4) Essential hypertension SNOMED Code(s): 32418910 ICD Code: I10 - ESSENTIAL (PRIMARY) HYPERTENSION Status: Chronic Current Visit: Yes (5) Urinary tract infection SNOMED Code(s): 54012339 ICD Code: N39.0 - URINARY TRACT INFECTION, SITE NOT SPECIFIED Status: Acute Current Visit: Yes (6) Paroxysmal atrial fibrillation SNOMED Code(s): 403057700 ICD Code: I48.0 - PAROXYSMAL ATRIAL FIBRILLATION Status: Chronic Current Visit: Yes (7) Chronic kidney disease SNOMED Code(s): 435738789 ICD Code: N18.9 - CHRONIC KIDNEY DISEASE, UNSPECIFIED Status: Chronic Current Visit: Yes Problem List Initiated/Reviewed/Updated: Yes Orders Last 24hrs: Active Orders 24 hr Category Date Time Status Patient Status [ADT] Routine ADT 03/24/17 19:06 Ordered Bedrest Bathroom Privileges [RC] ASDIRECTED Care 03/24/17 19:06 Ordered Cardiac Monitoring [RC] CONTINUOUS Care 03/24/17 19:07 Ordered Communication Order [RC] ROUTINE Care 03/24/17 19:29 Ordered EKG Documentation Completion [RC] STAT Care 03/24/17 17:22 Active Height and Weight [RC] DAILY Care 03/24/17 19:06 Ordered Intake and Output [RC] Q6H Care 03/24/17 19:07 Ordered Notify Provider Vital Signs [RC] ASDIRECTED Care 03/24/17 19:08 Ordered Oxygen Therapy [RC] PRN Care 03/24/17 19:06 Ordered Peripheral IV Care [RC] . DIRECTED Care 03/24/17 19:13 Ordered VTE/DVT Education [RC] PER UNIT ROUTINE Care 03/24/17 19:06 Ordered Vital Signs [RC] Q4H Care 03/24/17 19:06 Ordered OT Evaluation and Treatment [CONS] Routine Cons 03/24/17 19:06 Ordered PT Evaluation and Treatment [CONS] Routine Cons 03/24/17 19:06 Ordered Nothing per Oral Now Diet [DIET] Diet 03/24/17 Breakfast Ordered BASIC METABOLIC PANEL,BMP [CHEM] AM Lab 03/25/17 05:11 Ordered CBC WITH AUTO DIFF [HEME] AM Lab 03/25/17 05:11 Ordered MAGNESIUM [CHEM] AM Lab 03/25/17 05:11 Ordered TROPONIN I [CHEM] AM Lab 03/25/17 05:11 Ordered TROPONIN I [CHEM] Routine Lab 03/24/17 23:55 Ordered Acetaminophen [Tylenol] Med 03/24/17 19:06 Ordered 650 mg PO Q4H PRN Ciprofloxacin HCl [Cipro] Med 03/24/17 19:23 Ordered 250 mg PO BID PRN Clopidogrel [Plavix] Med 03/25/17 09:00 Ordered 75 mg PO DAILY Diltiazem 100 MG in NS Adv @ 5 MG/HR(100ml) Med 03/24/17 19:15 Ordered Diltiazem [Cardizem] 100 mg Sodium Chloride 0.9% [Normal Saline] 100 ml IV TITRATE Docusate Sodium/Sennosides [Senna Plus] Med 03/24/17 21:00 Ordered 2 tab PO BID Enoxaparin [Lovenox] Med 03/24/17 19:16 Once 75 mg SUBCUT ONETIME ONE Ferrous Sulfate Med 03/25/17 09:00 Ordered 325 mg PO DAILY LORazepam [Ativan] Med 03/24/17 19:23 Ordered 0.5 mg PO Q8H PRN Lactulose [Lactulose] Med 03/24/17 19:23 Ordered 15 ml PO TID PRN Latanoprost [Xalatan 0.005% Ophth Soln] Med 03/24/17 21:00 Ordered 1 drop EYEBOTH BEDTIME Metoprolol Tartrate [Lopressor] Med 03/24/17 19:24 Ordered 12.5 mg PO BID Midodrine Med 03/24/17 21:00 Ordered 2.5 mg PO BIDMEALS Nitroglycerin [Nitrostat] Med 03/24/17 19:27 Ordered 0.4 mg SL Q5M PRN Ondansetron [Zofran] Med 03/24/17 19:06 Ordered 4 mg IVPUSH Q6H PRN Polyethylene Glycol 3350 [MiraLAX] Med 03/24/17 19:06 Ordered 17 gm PO DAILY PRN Sodium Chloride 0.9% [Normal Saline] 1,000 ml Med 03/24/17 18:45 Active IV ASDIRECTED Sodium Chloride 0.9% [Saline Flush] Med 03/24/17 19:06 Ordered 10 ml FLUSH ASDIRECTED PRN Tamsulosin [Flomax] Med 03/25/17 09:00 Ordered 0.4 mg PO DAILY atorvaSTATin [Lipitor] Med 03/24/17 21:00 Ordered 40 mg PO BEDTIME Peripheral IV Insertion Adult [OM.PC] Routine Oth 03/24/17 19:06 Ordered Resuscitation Status Routine Resus Stat 03/24/17 19:06 Ordered Medication Orders Acetaminophen (Tylenol) 650 mg PO Q4H PRN PRN Reason: Pain (Mild 1-3)/fever Enoxaparin Sodium (Lovenox) 75 mg SUBCUT ONETIME ONE Stop: 03/24/17 19:17 Sodium Chloride (Normal Saline) 1,000 mls @ 500 mls/hr IV ASDIRECTED BEAN Stop: 03/24/17 20:44 Last Admin: 03/24/17 18:44 Dose: 500 mls/hr Diltiazem HCl 100 mg/ Sodium (Chloride) 100 mls @ 5 mls/hr IV TITRATE BEAN; 5 MG /HR PRN Reason: Protocol Ondansetron HCl (Zofran) 4 mg IVPUSH Q6H PRN PRN Reason: Nausea/Vomiting Polyethylene Glycol (Miralax) 17 gm PO DAILY PRN PRN Reason: Constipation Sodium Chloride (Saline Flush) 10 ml FLUSH ASDIRECTED PRN PRN Reason: Keep Vein Open Assessment/Plan Comment:: 86-year-old male with past medical history of essential hypertension, aortic stenosis, syncope who sustained left ear fracture on 03/07/2017 after syncopal episode and underwent gamma nailing procedure. While doing postsurgical physical therapy patient developed atrial fibrillation that was resolved spontaneously. Patient underwent coronary angiogram with PCI last week. Patient was coming to our hospital to do postsurgical physical therapy and occupational therapy after his surgery and upon arrival he developed atrial fibrillation with RVR. Troponin is 0.47. Patient has not have oral intake whether fluid or food since this morning. He complained of dry mouth. -This evening I spoke to cafeteria monitor senior naval parachutist at [facility] Dr. Nieto. I reviewed patient's case with him. He gave the option of transferring patient to [place] versus starting anticoagulation with heparin or Lovenox, starting Cardizem drip, repeating the troponin after 6-8 hours. If no significant troponin elevation and if packed sinus rhythm then we can stop the anticoagulation. I spoke to patient his and his daughter and I give the above recommendations to them and explained to them that patient condition may deteriorate fast and can result in cardaic arrest and and advised going back to [place] or going to [facility] by Ambulance. Patient, , and daughter all refused the transfusion and wanted to do the treatment here first but if his troponin goes up or if his condition deteriorates then we can transfer the patient #Atrial fibrillation with RVR. History of paroxysmal atrial fibrillation -Patient received 10 mg of Cardizem IV push -Start Cardizem drip -Continue metoprolol tartrate 12.5 mg twice a day -1 L of normal saline to be given in 2 hours -Anti-coagulation with Lovenox. I spoke to patient and family about Lovenox versus heparin also was nursing staff. Due to nursing shortage and having multiple IV infusion for the patient, we went with Lovenox. Patient and family understood the risk of serious bleeding from Lovenox and not being able to reverse it like heparin and he still wants patient to stay here and not being transferred -Continue Plavix and hold aspirin since on lovenox -Repeat troponin after 6 hours for 2 sets #Dehydration -1 L of normal saline iv to be given in 2 hours -After that start normal saline IV infusion at 75 mL per hour #Syncope Continue Midodrone #Coronary artery disease with recent PCI Continue Plavix -Hold aspirin since on Lovenox #Possible UTI Ciprofloxacin for 10 days #Essential hypertension Metoprolol #Anemia Continue ferrous sulfate orally #Chronic kidney disease Avoid nephrotoxic medications #Status post left hip replacement PT and OT consults DVT prophylaxis: Pharmaceutical DVT prophylaxis is contraindicated since he is on Lovenox CODE STATUS: Full
[2017-03-24] MEDS: Metoprolol Tartrate 25 MG Tab PO SCH ×2 (19:53→23:12)
[2017-03-24] MEDS ORDERED: Ciprofloxacin 500 MG Tab PO PRN (21:00)
[2017-03-24] MEDS: atorvaSTATin 10 MG Tab PO SCH (21:05)
[2017-03-24] MEDS: Midodrine 2.5 MG Tab PO SCH (21:06)
[2017-03-24] MEDS: Latanoprost 0.005% Ophth Soln 2.5 ML Bottle EYEBOTH SCH (21:09)
[2017-03-24] MEDS: LORazepam 0.5 MG Tab PO PRN (22:11)
[2017-03-25 06:51] LABS: CHLORIDE,CL 104 mmol/L (101-111); SODIUM,NA 133 mmol/L (135-145)
[2017-03-25] MEDS: Midodrine 2.5 MG Tab PO SCH ×2 (08:02→17:03)
[2017-03-25] MEDS: Ferrous Sulfate 325 MG Tab PO SCH (09:23)
[2017-03-25] MEDS: Metoprolol Tartrate 25 MG Tab PO SCH ×2 (09:23→21:17)
[2017-03-25] MEDS: Clopidogrel 75 MG Tab PO SCH (09:23)
[2017-03-25] MEDS: Tamsulosin 0.4 MG Cap.ER PO SCH (09:24)
--- NOTE | 2017-03-25 11:47 | PCM.PN ---
- General Info Date of Service: 03/25/17 Admission Dx/Problem (Free Text): Admission Diagnosis/Problem Admission Diagnosis/Problem Atrial fibrillation with rapid ventricular response Subjective Update: Patient feels the better. Nurse reported that his urine is cloudy. Patient denies chest discomfort, shortness breath, palpitation, dizziness, fainting, nausea, vomiting, abdominal pain, diarrhea, and other symptoms or concerns. - Patient Data Vitals - Most Recent: Last Vital Signs Temp 37.1 C 03/25/17 11:23 Pulse 81 03/25/17 11:23 Resp 20 03/25/17 11:23 BP 136/57 L 03/25/17 11:23 Pulse Ox 97 03/25/17 11:23 Orthostatic Blood Pressure [ 100/48 Standing] Orthostatic Blood Pressure [ 136/72 Sitting] Orthostatic Blood Pressure [ 134/61 Supine] Weight - Most Recent: 74.298 kg I&O - Last 24 Hours: Intake & Output 03/24/17 03/25/17 03/25/17 22:59 06:59 14:59 Intake Total 1000 Output Total 600 650 Balance 400 -650 Lab Results Last 24 Hours: Laboratory Results - last 24 hr 03/24/17 03/24/17 03/24/17 Range/Units 17:35 17:35 17:35 WBC 8.4 (5.0-10.0) 10^3/uL RBC 3.13 L (4.6-6.2) 10^6/uL Hgb 9.4 L (14.0-18.0) g/dL Hct 28.4 L (40.0-54.0) % MCV 90.7 (80-100) fL MCH 30.0 (27.0-34.0) pg MCHC 33.1 (33.0-35.0) g/dL Plt Count 142 L (150-450) 10^3/uL Neut % (Auto) 76.0 H (42.2-75.2) % Lymph % (Auto) 12.2 L (20.5-50.1) % Leon % (Auto) 8.7 H (2-8) % Eos % (Auto) 2.3 (1.0-3.0) % Baso % (Auto) 0.8 (0.0-1.0) % Add Manual Diff Neutrophils % (Manual) (42-75) % Band Neutrophils % % Lymphocytes % (Manual) (20-50) % Monocytes % (Manual) (2-8) % Eosinophils % (Manual) (1-3) % Sodium 135 (135-145) mmol/L Potassium 3.5 L (3.6-5.0) mmol/L Chloride 103 (101-111) mmol/L Carbon Dioxide 23.0 (21.0-31.0) mmol/L Anion Gap 12.5 BUN 28 H (7-18) mg/dL Creatinine 1.1 (0.6-1.3) mg/dL Est Cr Clr Drug Dosing 48.78 mL/min Estimated GFR (MDRD) > 60 Glucose 105 (74-105) mg/dL Calcium 9.0 (8.4-10.2) mg/dl Magnesium 1.7 L (1.8-2.5) mg/dL Troponin I 0.47 H* (0.00-0.02) ng/ml TSH, Ultra Sensitive (0.45-5.33) uIu/mL 03/24/17 03/24/17 03/25/17 Range/Units 17:35 23:25 06:00 WBC 5.4 (5.0-10.0) 10^3/uL RBC 2.52 L (4.6-6.2) 10^6/uL Hgb 7.4 L D (14.0-18.0) g/dL Hct 23.2 L (40.0-54.0) % MCV 92.1 (80-100) fL MCH 29.4 (27.0-34.0) pg MCHC 31.9 L (33.0-35.0) g/dL Plt Count 99 L (150-450) 10^3/uL Neut % (Auto) 70.1 (42.2-75.2) % Lymph % (Auto) 14.9 L (20.5-50.1) % Leon % (Auto) 10.0 H (2-8) % Eos % (Auto) 4.3 H (1.0-3.0) % Baso % (Auto) 0.7 (0.0-1.0) % Add Manual Diff Yes Neutrophils % (Manual) 74 (42-75) % Band Neutrophils % 2 % Lymphocytes % (Manual) 12 L (20-50) % Monocytes % (Manual) 9 H (2-8) % Eosinophils % (Manual) 3 (1-3) % Sodium (135-145) mmol/L Potassium (3.6-5.0) mmol/L Chloride (101-111) mmol/L Carbon Dioxide (21.0-31.0) mmol/L Anion Gap BUN (7-18) mg/dL Creatinine (0.6-1.3) mg/dL Est Cr Clr Drug Dosing mL/min Estimated GFR (MDRD) Glucose (74-105) mg/dL Calcium (8.4-10.2) mg/dl Magnesium (1.8-2.5) mg/dL Troponin I 0.39 H* (0.00-0.02) ng/ml TSH, Ultra Sensitive 1.20 (0.45-5.33) uIu/mL 03/25/17 Range/Units 06:00 WBC (5.0-10.0) 10^3/uL RBC (4.6-6.2) 10^6/uL Hgb (14.0-18.0) g/dL Hct (40.0-54.0) % MCV (80-100) fL MCH (27.0-34.0) pg MCHC (33.0-35.0) g/dL Plt Count (150-450) 10^3/uL Neut % (Auto) (42.2-75.2) % Lymph % (Auto) (20.5-50.1) % Leon % (Auto) (2-8) % Eos % (Auto) (1.0-3.0) % Baso % (Auto) (0.0-1.0) % Add Manual Diff Neutrophils % (Manual) (42-75) % Band Neutrophils % % Lymphocytes % (Manual) (20-50) % Monocytes % (Manual) (2-8) % Eosinophils % (Manual) (1-3) % Sodium 133 L (135-145) mmol/L Potassium 4.4 (3.6-5.0) mmol/L Chloride 104 (101-111) mmol/L Carbon Dioxide 23.0 (21.0-31.0) mmol/L Anion Gap 10.4 BUN 23 H (7-18) mg/dL Creatinine 1.1 (0.6-1.3) mg/dL Est Cr Clr Drug Dosing 48.78 mL/min Estimated GFR (MDRD) > 60 Glucose 92 (74-105) mg/dL Calcium 8.1 L (8.4-10.2) mg/dl Magnesium 2.1 (1.8-2.5) mg/dL Troponin I 0.45 H* (0.00-0.02) ng/ml TSH, Ultra Sensitive (0.45-5.33) uIu/mL Med Orders - Current: Current Medications Acetaminophen (Tylenol) 650 mg PO Q4H PRN PRN Reason: Pain (Mild 1-3)/fever Amiodarone HCl (Cordarone) 200 mg PO DAILY [facility] Atorvastatin Calcium (Lipitor) 40 mg PO BEDTIME [facility] Last Admin: 03/24/17 21:05 Dose: 40 mg Ciprofloxacin (Ciprofloxacin Hcl) 250 mg PO BID PRN PRN Reason: HOME ROUTINE Clopidogrel Bisulfate (Plavix) 75 mg PO DAILY [facility] Last Admin: 03/25/17 09:23 Dose: 75 mg Ferrous Sulfate (Ferrous Sulfate) 325 mg PO DAILY [facility] Last Admin: 03/25/17 09:23 Dose: 325 mg Diltiazem HCl 100 mg/ Sodium (Chloride) 100 mls @ 5 mls/hr IV TITRATE BEAN; 5 MG /HR PRN Reason: Protocol Lactulose (Cephulac) 10 gm PO TID PRN PRN Reason: CONSTIPATION Latanoprost (Xalatan 0.005% Ophth Soln) 0 ml EYEBOTH BEDTIME [facility] Last Admin: 03/24/17 21:09 Dose: 1 drop Lorazepam (Ativan) 0.5 mg PO Q8H PRN PRN Reason: Anxiety Last Admin: 03/24/17 22:11 Dose: 0.5 mg Metoprolol Tartrate (Lopressor) 12.5 mg PO BID [facility] Last Admin: 03/25/17 09:23 Dose: 12.5 mg Midodrine (Midodrine) 2.5 mg PO BIDMEALS [facility] Last Admin: 03/25/17 08:02 Dose: 2.5 mg Nitroglycerin (Nitrostat) 0.4 mg SL Q5M PRN PRN Reason: Chest Pain Ondansetron HCl (Zofran) 4 mg IVPUSH Q6H PRN PRN Reason: Nausea/Vomiting Polyethylene Glycol (Miralax) 17 gm PO DAILY PRN PRN Reason: Constipation Senna/Docusate Sodium (Senna Plus) 2 tab PO BID [facility] Last Admin: 03/25/17 09:23 Dose: 2 tab Sodium Chloride (Saline Flush) 10 ml FLUSH ASDIRECTED PRN PRN Reason: Keep Vein Open Last Admin: 03/24/17 22:21 Dose: 10 ml Tamsulosin HCl (Flomax) 0.4 mg PO DAILY [facility] Last Admin: 03/25/17 09:24 Dose: 0.4 mg Discontinued Medications Diltiazem HCl (Diltiazem) 10 mg IVPUSH ONETIME STA Stop: 03/24/17 18:33 Last Admin: 03/24/17 18:44 Dose: 10 mg Enoxaparin Sodium (Lovenox) 80 mg SUBCUT ONETIME ONE Stop: 03/24/17 19:17 Last Admin: 03/24/17 20:00 Dose: 80 mg Sodium Chloride (Normal Saline) 1,000 mls @ 500 mls/hr IV ASDIRECTED [facility] Stop: 03/24/17 20:44 Last Infusion: 03/24/17 20:50 Dose: Infused Magnesium Sulfate 4 gm/ Premix 100 mls @ 300 mls/hr IV ONETIME ONE Stop: 03/24/17 19:28 Last Infusion: 03/24/17 22:22 Dose: Infused Sodium Chloride (Normal Saline) 1,000 mls @ 75 mls/hr IV ASDIRECTED [facility] Last Admin: 03/24/17 20:58 Dose: 75 mls/hr Potassium Chloride (Klor-Con 10) 40 meq PO ONETIME ONE Stop: 03/24/17 19:11 Last Admin: 03/24/17 20:03 Dose: 40 meq - Exam General: Alert, Oriented, Cooperative, No Acute Distress. No: Mild Distress, Moderate Distress, Severe Distress, Sedated, Lethargic, Obtunded HEENT: Pupils Equal, Pupils Reactive, EOMI, Mucous Membr. Moist/[place] Neck: Supple, Trachea Midline, No JVD Lungs: Clear to Auscultation, Normal Respiratory Effort Cardiovascular: Regular Rate, Regular Rhythm, Murmurs (Systolic) GI/Abdominal Exam: Normal Bowel Sounds, Soft, Non-Tender, No Organomegaly, No Distention, No Abnormal Bruit, No Mass (Male) Exam: Deferred Back Exam: Normal Inspection, Full Range of Motion. No: CVA Tenderness (L), CVA Tenderness (R) Extremities: Normal Inspection, Normal Range of Motion, Non-Tender, No Pedal Edema, Normal Capillary Refill Skin: Warm, Dry, Intact Wound/Incisions: Healing Well Neurological: No New Focal Deficit Psy/Mental Status: Alert, Normal Affect, Normal Mood - Problem List & Annotations (1) Atrial fibrillation with RVR SNOMED Code(s): 179950200312800 Code(s): I48.91 - UNSPECIFIED ATRIAL FIBRILLATION Status: Acute Priority : High Current Visit: Yes (2) History of left hip replacement SNOMED Code(s): 984493261 Code(s): Z96.642 - PRESENCE OF LEFT ARTIFICIAL HIP JOINT Status: Acute Current Visit: Yes (3) Syncope SNOMED Code(s): 716092172 Code(s): R55 - SYNCOPE AND COLLAPSE Status: Chronic Current Visit: Yes (4) Essential hypertension SNOMED Code(s): 93465404 Code(s): I10 - ESSENTIAL (PRIMARY) HYPERTENSION Status: Chronic Current Visit: Yes (5) Urinary tract infection SNOMED Code(s): 30424563 Code(s): N39.0 - URINARY TRACT INFECTION, SITE NOT SPECIFIED Status: Acute Current Visit: Yes (6) Paroxysmal atrial fibrillation SNOMED Code(s): 601291640 Code(s): I48.0 - PAROXYSMAL ATRIAL FIBRILLATION Status: Chronic Current Visit: Yes (7) Chronic kidney disease SNOMED Code(s): 015045600 Code(s): N18.9 - CHRONIC KIDNEY DISEASE, UNSPECIFIED Status: Chronic Current Visit: Yes - Problem List Review Problem List Initiated/Reviewed/Updated: Yes - My Orders Last 24 Hours: My Active Orders 03/24/17 19:06 Patient Status [ADT] Routine Bedrest Bathroom Privileges [RC] ASDIRECTED Height and Weight [RC] 0600 Oxygen Therapy [RC] PRN VTE/DVT Education [RC] PER UNIT ROUTINE OT Evaluation and Treatment [CONS] Routine PT Evaluation and Treatment [CONS] Routine Acetaminophen [Tylenol] 650 mg PO Q4H PRN Ondansetron [Zofran] 4 mg IVPUSH Q6H PRN Polyethylene Glycol 3350 [MiraLAX] 17 gm PO DAILY PRN Sodium Chloride 0.9% [Saline Flush] 10 ml FLUSH ASDIRECTED PRN Peripheral IV Insertion Adult [OM.PC] Routine Resuscitation Status Routine 03/24/17 19:07 Cardiac Monitoring [RC] 08,20 Intake and Output [RC] Q6H 03/24/17 19:08 Notify Provider Vital Signs [RC] ASDIRECTED 03/24/17 19:13 Peripheral IV Care [RC] 08,20 03/24/17 19:15 Diltiazem [Cardizem] 100 mg Sodium Chloride 0.9% [Normal Saline] 100 ml IV TITRATE 03/24/17 19:23 LORazepam [Ativan] 0.5 mg PO Q8H PRN 03/24/17 19:24 Metoprolol Tartrate [Lopressor] 12.5 mg PO BID 03/24/17 19:27 Nitroglycerin [Nitrostat] 0.4 mg SL Q5M PRN 03/24/17 19:29 Communication Order [RC] ROUTINE 03/24/17 19:45 Lactulose [Cephulac] 10 gm PO TID PRN 03/24/17 19:57 Communication Order [RC] ROUTINE 03/24/17 21:00 Ciprofloxacin [Ciprofloxacin HCl] 250 mg PO BID PRN Docusate Sodium/Sennosides [Senna Plus] 2 tab PO BID Latanoprost [Xalatan 0.005% Ophth Soln] 0 ml EYEBOTH BEDTIME Midodrine 2.5 mg PO BIDMEALS atorvaSTATin [Lipitor] 40 mg PO BEDTIME 03/25/17 08:31 EKG 12 Lead [EKG Documentation Completion] [RC] ROUTINE 03/25/17 09:00 Clopidogrel [Plavix] 75 mg PO DAILY Ferrous Sulfate 325 mg PO DAILY Tamsulosin [Flomax] 0.4 mg PO DAILY 03/25/17 11:33 URINALYSIS W/MICROSCOPIC [UA W/MICROSCOPIC] [URIN] Routine 03/25/17 11:34 Antiembolic Devices [RC] PER UNIT ROUTINE [place] Hose [Antiembolic Hose] [OM.PC] Routine 03/25/17 11:45 Amiodarone [Cordarone] 200 mg PO DAILY 03/25/17 14:00 HEMOGLOBIN/HEMATOCRIT,HH [HEME] Timed 03/25/17 Lunch Heart Healthy Diet [DIET] 03/26/17 05:11 BASIC METABOLIC PANEL,BMP [CHEM] AM CBC WITH AUTO DIFF [HEME] AM - Plan Plan:: 86-year-old the male who had recent left hip fracture status post gamma nailing after a fall from syncope, vasovagal syncope, and recent NSTEMI status post PCI , paroxysmal atrial fibrillation. Patient came from [facility] for swing bed admission for physical patient's therapy and upon arrival are he developed atrial fibrillation with RVR #Atrial fibrillation with RVR. -EKG showed sinus rhythm today Converted to sinus rhythm after few hours after receiving 1 L of normal saline as a bolus, Cardizem 10 mg IV push, metoprolol tartrate 12.5 mg by mouth. -Continue Plavix and hold aspirin since on lovenox -Repeat troponin after 6 hours for 2 sets -I spoke to senior manager creative services Dr. Alejo at [facility] and discussed the case with him. He recommended restarting his amiodarone 200 mg daily mentioned to his metoprolol. He recommended against anticoagulations. I discussed that with patient and and they preferred not to do anticoagulation and agreed with the amiodarone. -Continue electronic device monitor #Elevated troponin Stable Patient troponin was 1.8 before he had his angiogram on 03/18/17. I get this information from calling [facility] today and speaking with Dr. Alejo, senior manager creative services #Dehydration Resolved IV fluids stopped encourage oral fluid intake #Anemia, chronic He denies blood in the stool or black stool -Hemoglobin dropped to 7.4. Possibly from dilution. -Recheck hemoglobin later today -Continue ferrous sulfate #Hypomagnesemia Replaced Patient was given 4 g of IV lesion sulfate #Hypokalemia Replaced orally #Syncope Continue Midodrone #Coronary artery disease with recent PCI Continue Placontinue aspirin and Plavix #Possible UTI -Ordered urinalysis Ciprofloxacin for 10 days #Essential hypertension Metoprolol #Chronic kidney disease Avoid nephrotoxic medications #Status post left hip replacement PT and OT consults heart healthy diet DVT prophylaxis: Pharmaceutical DVT prophylaxis is contraindicated since he is on Lovenox CODE STATUS: Full
[2017-03-25] MEDS: Aspirin 81 MG Tab.EC PO SCH (12:31)
[2017-03-25] MEDS: Amiodarone 200 MG Tab PO SCH (12:31)
[2017-03-25] MEDS: Latanoprost 0.005% Ophth Soln 2.5 ML Bottle EYEBOTH SCH (21:19)
[2017-03-25] MEDS: atorvaSTATin 10 MG Tab PO SCH (21:28)
[2017-03-25] MEDS: LORazepam 0.5 MG Tab PO PRN (23:41)
[2017-03-26 06:46] LABS: CHLORIDE,CL 104 mmol/L (101-111); SODIUM,NA 135 mmol/L (135-145)
[2017-03-26] MEDS: Aspirin 81 MG Tab.EC PO SCH (07:54)
[2017-03-26] MEDS: Midodrine 2.5 MG Tab PO SCH (07:54)
[2017-03-26] MEDS: Tamsulosin 0.4 MG Cap.ER PO SCH (10:01)
[2017-03-26] MEDS: Clopidogrel 75 MG Tab PO SCH (10:01)
[2017-03-26] MEDS: Ferrous Sulfate 325 MG Tab PO SCH (10:01)
[2017-03-26] MEDS: Metoprolol Tartrate 25 MG Tab PO SCH (10:05)
[2017-03-26] MEDS: Amiodarone 200 MG Tab PO SCH (10:06)
[2017-03-26] MEDS ORDERED: Ciprofloxacin 500 MG Tab PO PRN (10:42)
[2017-03-26] MEDS ORDERED: Ciprofloxacin 500 MG Tab PO ONE (11:00)
--- NOTE | 2017-03-26 11:02 | PCM.DCSUM1 ---
Discharge Summary - Hospital Course Free Text/Narrative:: 6-year-old male with past medical history of hypertension, aortic stenosis, vasovagal syncope, recent left hip replacement coronary artery disease status post PCI on and March presented on 03/24/17 to the hospital from [facility] for swing bed for his left hip replacement and post coronary PCI recovery. Upon arrival to the hospital and while nurse taking his vitals patient felt central chest discomfort rated at 5/10 on pain scale associated with sweats and dizziness. He said it was hard for him to take a deep breath at that time. This lasted about 20 minutes and symptoms resolved spontaneously after sitting in chair. EKG was done and showed atrial fibrillation with heart rate of [address] changes. Troponin is 0.47. Patient denies headache, change in vision, fever, chills, cough, abdominal pain, diarrhea, lower extremities edema, unilateral weakness/numbness/tingling, bleeding, black stool, in stool, any other symptoms or concerns. On 03/07/2017 patient had syncopal episode and left hip fracture. At that time he went to [facility] in [place] and he was found to be anemic so blood transfusion and IV fluids were given and fracture was repaired by gamma nailing. During that hospitalization and was working with physical therapy patient developed atrial fibrillation was rapid ventricular response and had an episode of syncope. He was converted to normal sinus rhythm gradually at that time he was started on metoprolol and amiodarone. His troponin went up to 0.49 also it was reported that patient had 2 more episodes of syncope while working with physical therapy. His equal cardiogram showed ejection fraction of 65% and aortic stenosis with valve area of 1.86. Patient then was transferred to [place] for cardiac evaluation for possible valve replacement. Patient was found to have urinary tract infection with Staphylococcus epididymis and was started on doxycycline and later on ciprofloxacin patient was started on Midodrone for his syncope. Plavix and atorvastatin was started. Today patient reported no symptoms for the last 24 hours. Plan of care during hospitalization: #Atrial fibrillation with RVR. -EKG on 03/25/17 showed sinus rhythm today Converted to sinus rhythm after few hours after receiving 1 L of normal saline as a bolus, Cardizem 10 mg IV push, metoprolol tartrate 12.5 mg by mouth. -Continue Plavix and hold aspirin since on lovenox -Troponin is stable -I spoke to throat cutter Dr. Alejo at [facility] and discussed the case with him. He recommended restarting his amiodarone 200 mg daily mentioned to his metoprolol. He recommended against anticoagulations. I discussed that with patient and and they preferred not to do anticoagulation and agreed with the amiodarone. -Continue night monitor #Elevated troponin Stable Patient troponin was 1.8 before he had his angiogram on 03/18/17. I get this information from calling [place] today and speaking with Dr. Alejo, throat cutter #Dehydration Resolved IV fluids stopped encourage oral fluid intake #Anemia, chronic He denies blood in the stool or black stool -Hemoglobin dropped to 7.4. Possibly from dilution. Today went up to 8.0. -Continue ferrous sulfate #Hypomagnesemia Replaced Patient was given 4 g of IV lesion sulfate #Hypokalemia Replaced orally #Syncope Continue Midodrone #Coronary artery disease with recent PCI Continue Placontinue aspirin and Plavix #Possible UTI -Ordered urinalysis Ciprofloxacin for 10 days #Essential hypertension Metoprolol #Chronic kidney disease Avoid nephrotoxic medications #Status post left hip replacement PT and OT consults heart healthy diet DVT prophylaxis: Pharmaceutical DVT prophylaxis is contraindicated since he is on Lovenox CODE STATUS: Full - Discharge Data Discharge Date: 03/26/17 Discharge Disposition: DC/Tfer W/I Hosp To Swing 61 Condition: Fair - Discharge Diagnosis/Problem(s) (1) Atrial fibrillation with RVR SNOMED Code(s): 052097406538004 ICD Code: I48.91 - UNSPECIFIED ATRIAL FIBRILLATION Status: Resolved Priority: High Current Visit: Yes (2) History of left hip replacement SNOMED Code(s): 414161917 ICD Code: Z96.642 - PRESENCE OF LEFT ARTIFICIAL HIP JOINT Status: Acute Current Visit: Yes (3) Syncope SNOMED Code(s): 511485051 ICD Code: R55 - SYNCOPE AND COLLAPSE Status: Chronic Current Visit: Yes (4) Essential hypertension SNOMED Code(s): 54786598 ICD Code: I10 - ESSENTIAL (PRIMARY) HYPERTENSION Status: Chronic Current Visit: Yes (5) Urinary tract infection SNOMED Code(s): 93178303 ICD Code: N39.0 - URINARY TRACT INFECTION, SITE NOT SPECIFIED Status: Acute Current Visit: Yes (6) Paroxysmal atrial fibrillation SNOMED Code(s): 850508261 ICD Code: I48.0 - PAROXYSMAL ATRIAL FIBRILLATION Status: Chronic Current Visit: Yes (7) Chronic kidney disease SNOMED Code(s): 112197519 ICD Code: N18.9 - CHRONIC KIDNEY DISEASE, UNSPECIFIED Status: Chronic Current Visit: Yes - Patient Summary/Data Consults: Consultations 03/24/17 19:06 OT Evaluation and Treatment [CONS] Routine PT Evaluation and Treatment [CONS] Routine - Discharge Plan Home Medications: Home Meds Tamsulosin [Flomax] 0.4 mg PO DAILY 04/25/14 [History] Latanoprost [Xalatan 0.005% Ophth Soln] 1 drop EYEBOTH BEDTIME 04/26/14 [History ] Acetaminophen 650 mg PO Q6H PRN 03/24/17 [History] Aspirin [Halfprin] 81 mg PO DAILY 03/24/17 [History] Ciprofloxacin HCl [Cipro] 250 mg PO BID PRN 03/24/17 [History] Ferrous Sulfate 325 mg PO DAILY 03/24/17 [History] LORazepam [LORazepam] 0.5 mg PO Q8H PRN 03/24/17 [History] Lactulose 15 ml PO TID PRN 03/24/17 [History] Metoprolol Tartrate [Metoprolol Tartrate] 12.5 mg PO BID 03/24/17 [History] Sennosides/Docusate Sodium [Sennosides-Docusate Sodium] 2 tab PO BID 03/24/17 [ History] - General Info Date of Service: 03/26/17 Admission Dx/Problem (Free Text: Admission Diagnosis/Problem Admission Diagnosis/Problem Atrial fibrillation with rapid ventricular response Subjective Update: Patient feels the better. Patient denies fever, chills chest discomfort, shortness breath, palpitation, dizziness, fainting, nausea, vomiting, abdominal pain, diarrhea, dysuria, blood in stool, black stool, blood in the urine, and any other symptoms or concerns. - Patient Data Vitals - Most Recent: Last Vital Signs Temp 36.9 C 03/26/17 08:14 Pulse 85 03/26/17 10:05 Resp 20 03/26/17 08:14 BP 119/57 L 03/26/17 10:05 Pulse Ox 95 03/26/17 08:14 Orthostatic Blood Pressure [ 100/48 Standing] Orthostatic Blood Pressure [ 136/72 Sitting] Orthostatic Blood Pressure [ 134/61 Supine] Weight - Most Recent: 72.688 kg I&O - Last 24 hours: Intake & Output 03/25/17 03/26/17 03/26/17 22:59 06:59 14:59 Intake Total 520 400 325 Output Total 1200 1301 Balance -680 -901 325 Lab Results - Last 24 hrs: Laboratory Results - last 24 hr 03/25/17 03/25/17 03/26/17 Range/Units 13:50 16:50 06:10 WBC 5.3 (5.0-10.0) 10^3/uL RBC 2.67 L (4.6-6.2) 10^6/uL Hgb 7.8 L 8.0 L (14.0-18.0) g/dL Hct 24.0 L 24.2 L (40.0-54.0) % MCV 90.6 (80-100) fL MCH 30.0 (27.0-34.0) pg MCHC 33.1 (33.0-35.0) g/dL Plt Count 104 L (150-450) 10^3/uL Neut % (Auto) 69.2 (42.2-75.2) % Lymph % (Auto) 13.9 L (20.5-50.1) % [place] % (Auto) 11.0 H (2-8) % Eos % (Auto) 4.6 H (1.0-3.0) % Baso % (Auto) 1.3 H (0.0-1.0) % Sodium (135-145) mmol/L Potassium (3.6-5.0) mmol/L Chloride (101-111) mmol/L Carbon Dioxide (21.0-31.0) mmol/L Anion Gap BUN (7-18) mg/dL Creatinine (0.6-1.3) mg/dL Est Cr Clr Drug Dosing mL/min Estimated GFR (MDRD) Glucose (74-105) mg/dL Calcium (8.4-10.2) mg/dl Urine Color Dark yellow (YELLOW) Urine Appearance Turbid (CLEAR) Urine pH 5.0 (5.0-9.0) Ur Specific [place] 1.015 (1.005-1.030) Urine Protein 30 H (NEGATIVE) Urine Glucose (UA) Negative (NEGATIVE) Urine Ketones Negative (NEGATIVE) Urine Occult Blood Large H (NEGATIVE) Urine Nitrite Negative (NEGATIVE) Urine Bilirubin Negative (NEGATIVE) Urine Urobilinogen 0.2 (0.2-1.0) mg/dL Ur Leukocyte Esterase Large H (NEGATIVE) Urine RBC 75-100 H /HPF Urine WBC >100 H (0-5/HPF) /HPF Ur Epithelial Cells Rare /HPF Urine Bacteria Many H (0-FEW/HPF) /HPF 03/26/17 Range/Units 06:10 WBC (5.0-10.0) 10^3/uL RBC (4.6-6.2) 10^6/uL Hgb (14.0-18.0) g/dL Hct (40.0-54.0) % MCV (80-100) fL MCH (27.0-34.0) pg MCHC (33.0-35.0) g/dL Plt Count (150-450) 10^3/uL Neut % (Auto) (42.2-75.2) % Lymph % (Auto) (20.5-50.1) % [place] % (Auto) (2-8) % Eos % (Auto) (1.0-3.0) % Baso % (Auto) (0.0-1.0) % Sodium 135 (135-145) mmol/L Potassium 3.8 (3.6-5.0) mmol/L Chloride 104 (101-111) mmol/L Carbon Dioxide 24.0 (21.0-31.0) mmol/L Anion Gap 10.8 BUN 26 H (7-18) mg/dL Creatinine 1.1 (0.6-1.3) mg/dL Est Cr Clr Drug Dosing 47.72 mL/min Estimated GFR (MDRD) > 60 Glucose 92 (74-105) mg/dL Calcium 8.7 (8.4-10.2) mg/dl Urine Color (YELLOW) Urine Appearance (CLEAR) Urine pH (5.0-9.0) Ur Specific [place] (1.005-1.030) Urine Protein (NEGATIVE) Urine Glucose (UA) (NEGATIVE) Urine Ketones (NEGATIVE) Urine Occult Blood (NEGATIVE) Urine Nitrite (NEGATIVE) Urine Bilirubin (NEGATIVE) Urine Urobilinogen (0.2-1.0) mg/dL Ur Leukocyte Esterase (NEGATIVE) Urine RBC /HPF Urine WBC (0-5/HPF) /HPF Ur Epithelial Cells /HPF Urine Bacteria (0-FEW/HPF) /HPF Med Orders - Current: Current Medications Acetaminophen (Tylenol) 650 mg PO Q4H PRN PRN Reason: Pain (Mild 1-3)/fever Amiodarone HCl (Cordarone) 200 mg PO DAILY [facility] Last Admin: 03/26/17 10:06 Dose: 200 mg Aspirin (Halfprin) 81 mg PO DAILY@0800 [facility] Last Admin: 03/26/17 07:54 Dose: 81 mg Atorvastatin Calcium (Lipitor) 40 mg PO BEDTIME [facility] Last Admin: 03/25/17 21:28 Dose: 40 mg Ciprofloxacin (Ciprofloxacin Hcl) 500 mg PO BID PRN PRN Reason: HOME ROUTINE Stop: 04/03/17 21:01 Ciprofloxacin (Ciprofloxacin Hcl) 250 mg PO ONETIME ONE Stop: 03/26/17 10:43 Clopidogrel Bisulfate (Plavix) 75 mg PO DAILY [facility] Last Admin: 03/26/17 10:01 Dose: 75 mg Ferrous Sulfate (Ferrous Sulfate) 325 mg PO DAILY [facility] Last Admin: 03/26/17 10:01 Dose: 325 mg Diltiazem HCl 100 mg/ Sodium (Chloride) 100 mls @ 5 mls/hr IV TITRATE BEAN; 5 MG /HR PRN Reason: Protocol Lactulose (Cephulac) 10 gm PO TID PRN PRN Reason: CONSTIPATION Latanoprost (Xalatan 0.005% Ophth Soln) 0 ml EYEBOTH BEDTIME [facility] Last Admin: 03/25/17 21:19 Dose: 1 drop Lorazepam (Ativan) 0.5 mg PO Q8H PRN PRN Reason: Anxiety Last Admin: 03/25/17 23:41 Dose: 0.5 mg Metoprolol Tartrate (Lopressor) 12.5 mg PO BID [facility] Last Admin: 03/26/17 10:05 Dose: 12.5 mg Midodrine (Midodrine) 2.5 mg PO BIDMEALS [facility] Last Admin: 03/26/17 07:54 Dose: 2.5 mg Nitroglycerin (Nitrostat) 0.4 mg SL Q5M PRN PRN Reason: Chest Pain Ondansetron HCl (Zofran) 4 mg IVPUSH Q6H PRN PRN Reason: Nausea/Vomiting Polyethylene Glycol (Miralax) 17 gm PO DAILY PRN PRN Reason: Constipation Senna/Docusate Sodium (Senna Plus) 2 tab PO BID [facility] Last Admin: 03/26/17 10:06 Dose: Not Given Sodium Chloride (Saline Flush) 10 ml FLUSH ASDIRECTED PRN PRN Reason: Keep Vein Open Last Admin: 03/24/17 22:21 Dose: 10 ml Tamsulosin HCl (Flomax) 0.4 mg PO DAILY [facility] Last Admin: 03/26/17 10:01 Dose: 0.4 mg Discontinued Medications Ciprofloxacin (Ciprofloxacin Hcl) 250 mg PO BID PRN PRN Reason: HOME ROUTINE Last Admin: 03/25/17 18:44 Dose: 250 mg Diltiazem HCl (Diltiazem) 10 mg IVPUSH ONETIME STA Stop: 03/24/17 18:33 Last Admin: 03/24/17 18:44 Dose: 10 mg Enoxaparin Sodium (Lovenox) 80 mg SUBCUT ONETIME ONE Stop: 03/24/17 19:17 Last Admin: 03/24/17 20:00 Dose: 80 mg Sodium Chloride (Normal Saline) 1,000 mls @ 500 mls/hr IV ASDIRECTED [facility] Stop: 03/24/17 20:44 Last Infusion: 03/24/17 20:50 Dose: Infused Magnesium Sulfate 4 gm/ Premix 100 mls @ 300 mls/hr IV ONETIME ONE Stop: 03/24/17 19:28 Last Infusion: 03/24/17 22:22 Dose: Infused Sodium Chloride (Normal Saline) 1,000 mls @ 75 mls/hr IV ASDIRECTED [facility] Last Admin: 03/24/17 20:58 Dose: 75 mls/hr Potassium Chloride (Klor-Con 10) 40 meq PO ONETIME ONE Stop: 03/24/17 19:11 Last Admin: 03/24/17 20:03 Dose: 40 meq - Exam General: Reports: Alert, Oriented, Cooperative, No Acute Distress. Denies: Mild Distress, Moderate Distress, Severe Distress, Sedated, Lethargic, Obtunded HEENT: Reports: Pupils Equal, Pupils Reactive, EOMI, Mucous Membr. Moist/[place] Neck: Reports: Supple, Trachea Midline, No JVD Lungs: Reports: Clear to Auscultation, Normal Respiratory Effort. Denies: Decreased Breath Sounds, Rales, Rhonchi, Rub, Stridor, Wheezing Cardiovascular: Reports: Regular Rate, Regular Rhythm GI/Abdominal Exam: Normal Bowel Sounds, Soft, Non-Tender, No Organomegaly, No Distention, No Abnormal Bruit, No Mass (Male) Exam: Deferred Rectal (Males) Exam: Deferred Back Exam: Reports: Normal Inspection, Full Range of Motion. Denies: CVA Tenderness (L), CVA Tenderness (R) Extremities: Normal Inspection, Normal Range of Motion, Non-Tender, No Pedal Edema, Normal Capillary Refill Skin: Reports: Warm, Dry, Intact Neurological: Reports: No New Focal Deficit Psy/Mental Status: Reports: Alert, Normal Affect, Normal Mood. Denies: Labile Mood, Anxious, Depressed, Agitated, Suicidal Ideation, Homicidal Ideation, Hallucinations, Withdrawal Symptoms *Q Meaningful Use (DIS) - VTE *Q VTE Criteria *Q: - Stroke *Q Stroke Criteria *Q: - AMI *Q AMI Criteria *Q:
--- NOTE | 2017-03-27 10:03 | EKG ---
03/24/2017 - LINDSAY HERMAN I reviewed the EKG and agree with the machine's reading. [facility] /[id number]
--- NOTE | 2017-03-27 23:34 | EKG ---
03/25/2017 - LINDSAY HERMAN I reviewed the EKG and agree with the machine's reading. [facility] /[id number]
== END 2017-03-26 15:56 | disposition swing bed (61) | DRG 309 ==
LOC: DL.MS 15:58 → UNDOADMIN 15:58 → DL.MS 19:06
PROVIDERS: ADMIT Family Medicine; ATTEND Family Medicine
DX: I48.0 Paroxysmal atrial fibrillation (principal); N39.0 Urinary tract infection, site not specified; E74.8 Other specified disorders of carbohydrate metabolism; R55 Syncope and collapse; I12.9 Hypertensive chronic kidney disease with stage 1 through stage 4 chronic kidney disease, or unspecified chronic kidney disease; N18.9 Chronic kidney disease, unspecified; I10 Essential (primary) hypertension; I25.10 Atherosclerotic heart disease of native coronary artery without angina pectoris; Z95.5 Presence of coronary angioplasty implant and graft; Z96.642 Presence of left artificial hip joint; E86.0 Dehydration; D64.9 Anemia, unspecified; E83.42 Hypomagnesemia; E87.6 Hypokalemia; I35.0 Nonrheumatic aortic (valve) stenosis; Z79.02 Long term (current) use of antithrombotics/antiplatelets; Z79.82 Long term (current) use of aspirin; Z79.899 Other long term (current) drug therapy; H40.9 Unspecified glaucoma; H91.90 Unspecified hearing loss, unspecified ear; E61.1 Iron deficiency; Z85.46 Personal history of malignant neoplasm of prostate; Z87.891 Personal history of nicotine dependence
CPT/HCPCS: 36415; 80048; 81001; 83735; 84443; 84484; 85014; 85018; 85025; 87086; 93005; 93010; A9270-GY; J1650; J3475; J3490; J7030; J7050